=== PATIENT | female | born 1960 | race Caucasian/White ===

== ENCOUNTER 2018-05-16 15:46 | Observation (INO) ==
[2018-05-16] MEDS ORDERED: DILTIAZEM HCL 5 MG/ML VIAL IV ONE ×2 (15:57→16:02)
[2018-05-16] MEDS ORDERED: DILTIAZEM HCL 125 MG in DEXTROSE 5 % IN WATER 100 ML IV PRN ×2 (15:57)
[2018-05-16 16:14] LABS: Hematocrit 43.5 % (37.0-47.0); Hemoglobin 14.7 gm/dL (12.5-16.0); Mean Cell Volume 89.3 fl (78-100); Mean Corpuscular Hemoglobin 30.2 pg (27-31); Mean Corpuscular Hgb Conc 33.8 g/dl (32-36); Mean Platelet Volume 8.9 fl (8-12.5); Neutrophil # 5.1 K/mm3 (1.3-6.0); Neutrophil % 58.6 % (42-75.0); Platelet Count 290 K/mm3 (150-450); Red Blood Count 4.87 M/mm3 (4.2-5.4); Red Cell Distribution Width 12.2 % (11.5-14.0); White Blood Count 8.7 K/mm3 (4.0-10.5)
[2018-05-16] MEDS ORDERED: ASPIRIN 81 MG TAB.CHEW PO ONE (16:17)
[2018-05-16] MEDS ORDERED: ASPIRIN 81 MG TAB.CHEW ONE (16:18)
--- NOTE | 2018-05-16 16:23 | ERNOTE ---
Chest Pain/Cardiac HPI Chief Complaint: Palpitations Time Seen by Provider: 05/16/18 15:49 Source: patient Exam Limitations: no limitations Immunizations: IMMUNIZATION HX Immunizations Up to Date No History of Influenza Vaccine No Hx Pneumococcal Vaccination No Allergies/Adverse Reactions: Allergies No Known Allergies Allergy (Unverified 01/31/16 09:24) Home Medications: HOME MEDICATIONS Losartan Potassium [Cozaar] 100 mg PO DAILY 01/31/16 [Last Taken Unknown] Narrative: Patient presents with approximately 5-6 days of palpitations, some exertional dyspnea and generalized discomfort present across the back. Patient was seen in clinic today and was found to be in atrial fibrillation with a rapid ventricular response. Timing: constant Severity/Quality: moderate Location: back Chest Pain Radiation: no radiation Activities at Onset: none Modifying Factors - Improves: Present: nothing Modifying Factors - Worsens: Present: exercise Nitro Today/Relief: no nitro taken today Aspirin Treatment Today: 81 mg x 4 Associated Symptoms: Present: palpitations Prior Chest Pain/Cardiac Workup: Reports: prior chest pain Prior Treatment: Reports: recently seen, treated by physician Review of Systems - Review of Systems Constitutional: Present: See HPI EYE: Present: no symptoms reported ENT: Present: no symptoms reported Respiratory: Present: See HPI Cardiology: Present: See HPI Gastrointestinal/Abdominal: Present: no symptoms reported Genitourinary: Present: no symptoms reported Musculoskeletal: Present: no symptoms reported Skin: Present: no symptoms reported Neurological: Present: no symptoms reported Endocrine: Present: no symptoms reported Hematologic/Lymphatic: Present: no symptoms reported Psych: Present: no symptoms reported Medical History (Last Updated 05/16/18 @ 16:18 by Venkatesh Duff DO) High cholesterol Hypertension Social History: Preferred Language Mohawk Do you have any judaism or Yes: menonite cultural preference? Smoking Status Never smoker Alcohol Use occasionally Drug Use none Physical Exam - Physical Exam General Appearance: Present: wd/wn, alert, mild distress Head Exam: Present: normal inspection, no evidence of injury Eye Exam: Normal inspection: bilateral, PERRL: bilateral Ears, Nose, Throat: Present: normal ENT inspection, H, normal pharynx Neck: Present: normal inspection, nontender Respiratory: Present: no respiratory distress, normal breath sounds, no accessory muscle use, chest nontender, lungs clear Cardiovascular/Chest: Present: no murmur, normal peripheral pulses, tachycardia , irregularly irregular Gastrointestinal/Abdominal: Present: normal bowel sounds, nontender, nondistended, soft, no organomegaly Rectal Exam: Present: deferred Back Exam: Present: normal inspection, normal range of motion Extremity Exam: Present: normal inspection, non-tender, no edema, normal range of motion Neurological Exam: Present: alert, oriented, normal mood/affect Skin Exam: Present: normal color, warm/dry Lymphatic Exam: Present: no adenopathy ED Progress - Results and Orders Patient's Lab Results:: I have reviewed the patient's lab results. - Vital Signs Patient's Vital Signs:: I have reviewed the patient's vital signs. Vital Signs: Vital Signs 05/16/18 15:52 05/16/18 16:03 Temperature 37.1 C Pulse Rate 145 H 149 H Respiratory Rate 24 H Blood Pressure 147/121 H 142/121 H O2 Sat by Pulse Oximetry 97 - EKG EKG: atrial fibrillation EKG read: Reviewed by me - X-Ray X-Ray #1 X-Ray: chest Interpretation: Reviewed by me - Progress/Reassessment Chief Complaint: Palpitations Plan - Plan Plan: Patient will be admitted to the ICU on a Cardizem drip, Eliquis 5 mg by mouth twice a day and we will start her on Cardizem CD 120 mg to try to control the rate so we can stop the drip. Patient will also get an echocardiogram tomorrow. Departure Clinical Impression: Atrial fibrillation with rapid ventricular response - Departure Disposition: Still a patient Condition: Critical Referrals: Sarah Rinaldi MD [Primary Care Provider] - Critical Care Note - Critical Care Note Total Time (mins): 45 Comments: Patient required both IV Cardizem push as well as a Cardizem drip to control her atrial fibrillation. She'll be admitted to the ICU for hopeful conversion to an oral Cardizem and successful anticoagulation with Eliquis.
[2018-05-16 16:27] LABS: Prothrombin Time (Patient) 10.2 Seconds (9.0-11.0)
[2018-05-16 16:28] LABS: INR 1.02 INR (0.90-1.10); Partial Thrombolplastin Time 23.9 Seconds (24-32)
[2018-05-16 16:37] LABS: ALT 35 U/L (19-67); AST 22 U/L (0-48); Albumin * 3.8 gm/dl (3.4-5.0); Alkaline Phosphatase * 83 U/L (50-170); Anion Gap 11.3 mmol/L (6.8-13.8); BUN/Creatinine Ratio 19.5 (9.0-21.6); Bilirubin, Total 0.5 mg/dL (0.0-1.1); Blood Urea Nitrogen 17 mg/dL (3-23); Calcium * 9.2 mg/dL (7.9-10.9); Carbon Dioxide 27.5 mmol/L (24-32.6); Chloride 106 mmol/L (97-106); Glucose * 98 mg/dL (70-110); Magnesium 1.9 mg/dL (1.2-2.8); Potassium 3.8 mmol/L (3.4-4.6); Sodium 141 mmol/L (132-142); Total Protein 7.5 gm/dL (6.2-8.2); Troponin I Less than 0.017 ng/mL (0.00-0.10)
[2018-05-16] MEDS ORDERED: NORMAL SALINE 1,000 ML IV ONE (17:09)
[2018-05-16] MEDS ORDERED: DILTIAZEM HCL 120 MG CAP.SR.24H PO ONE (17:30)
[2018-05-16] MEDS ORDERED: APIXABAN 5 MG TABLET PO ONE (17:30)
--- NOTE | 2018-05-16 18:28 | HP ---
Chief Complaint - Chief Complaint Date of Service: 05/16/18 Time of Service: 18:17 Chief Complaint: chest discomfort, palpitations History of Present Illness: Patient started having some chest and upper back discomfort 5-6 days ago. Was found to be in afib with RVR in the ED. Has never had this before. No SOB or dizziness. No recent medication changes. Denies alcohol or drug use. Medical History (Last Updated 05/16/18 @ 16:18 by Venkatesh Duff DO) High cholesterol Hypertension Social History: Preferred Language Bulgarian Do you have any episcopal or Yes: menonite cultural preference? Smoking Status Never smoker Alcohol Use occasionally Drug Use none Review Of Systems (GEN) - Review of Systems Generalized/Overall Review: Absent: Fever, Diaphoresis Respiratory: Absent: Cough, Shortness of Breath, Wheezing Cardiac: Present: Palpitations, Other. Absent: Chest Pain, Edema Abdominal: Absent: Nausea, Vomiting, Constipation, Diarrhea Neurological: Absent: Seizure Skin: Present: No Symptoms Reported Immunizations: IMMUNIZATION HX Immunizations Up to Date No History of Influenza Vaccine No Hx Pneumococcal Vaccination No Allergies/Adverse Reactions: Allergies Allergy/AdvReac Type Severity Reaction Status Date / Time No Known Allergies Allergy Unverified 01/31/16 09:24 Home Medications: HOME MEDICATIONS Losartan Potassium [Cozaar] 100 mg PO DAILY 01/31/16 [Last Taken Unknown] Exam - Exam Vital Signs: Vital Signs - Last Taken Temp 37.1 C 05/16/18 15:52 Pulse 101 H 05/16/18 17:14 Resp 24 H 05/16/18 15:52 BP 151/83 H 05/16/18 17:14 Pulse Ox 97 05/16/18 15:52 Constitutional: Present: Alert, Oriented x3, Cooperative, Well developed, No distress ENT Exam: Present: hearing grossly normal Eye Exam: bilateral eye: EOMI Respiratory: Present: lungs clear, normal breath sounds, no respiratory distress Cardiovascular/Chest: Present: regular rate, rhythm Abdomen: Present: Normal bowel sounds, soft, nontender Extremity: Absent: lower extremity edema Skin Exam: Present: normal color Lymphatic: Present: no adenopathy Neurologic: Present: normal mood/affect Appearance: Present: appropriate appearance, appropriate insight Eye contact: Present: cooperative, good eye contact Diagnostic Studies: Abnormal Lab Results 05/16/18 05/16/18 Range/Units 16:11 16:11 Immature Gran % (Auto) 0.50 H (0.001-0.429) % Immature Gran # (Auto) 0.04 H (0.000-0.0310) K/mm3 PTT ([place]) 23.9 L (24-32) Seconds Laboratory Results WBC 8.7 K/mm3 (4.0-10.5) 05/16/18 16:11 RBC 4.87 M/mm3 (4.2-5.4) 05/16/18 16:11 Hgb 14.7 gm/dL (12.5-16.0) 05/16/18 16:11 Hct 43.5 % (37.0-47.0) 05/16/18 16:11 MCV 89.3 fl (78-100) 05/16/18 16:11 MCH 30.2 pg (27-31) 05/16/18 16:11 MCHC 33.8 g/dl (32-36) 05/16/18 16:11 RDW 12.2 % (11.5-14.0) 05/16/18 16:11 Plt Count 290 K/mm3 (150-450) 05/16/18 16:11 MPV 8.9 fl (8-12.5) 05/16/18 16:11 Immature Gran % (Auto) 0.50 % (0.001-0.429) H 05/16/18 16:11 Immature Gran # (Auto) 0.04 K/mm3 (0.000-0.0310) H 05/16/18 16:11 Neutrophils % 58.6 % (42-75.0) 05/16/18 16:11 Lymphocytes % 33.1 % (20-51) 05/16/18 16:11 Monocytes % 5.7 % (0.0-9) 05/16/18 16:11 Eosinophils % 1.2 % (0.0-3.0) 05/16/18 16:11 Basophils % 0.9 % (0.0-1.0) 05/16/18 16:11 Nucleated RBC % 0.0 k/mm3 (0-1) 05/16/18 16:11 Neutrophils # 5.1 K/mm3 (1.3-6.0) 05/16/18 16:11 Lymphocytes # 2.87 k/mm3 (1.5-3.5) 05/16/18 16:11 Monocytes # 0.5 k/mm3 (0.0-1.0) 05/16/18 16:11 Eosinophils # 0.1 k/mm3 (0.0-0.7) 05/16/18 16:11 Absolute Basophils 0.1 k/mm3 (0.0-0.1) 05/16/18 16:11 PT 10.2 Seconds (9.0-11.0) 05/16/18 16:11 INR (Anticoag Therapy) 1.02 INR (0.90-1.10) 05/16/18 16:11 PTT ([place]) 23.9 Seconds (24-32) L 05/16/18 16:11 Sodium 141 mmol/L (132-142) 05/16/18 16:11 Plasma Sodium 141 mmol/L (130-142) 05/16/18 16:11 Potassium 3.8 mmol/L (3.4-4.6) 05/16/18 16:11 Chloride 106 mmol/L (97-106) 05/16/18 16:11 Carbon Dioxide 27.5 mmol/L (24-32.6) 05/16/18 16:11 Anion Gap 11.3 mmol/L (6.8-13.8) 05/16/18 16:11 BUN 17 mg/dL (3-23) 05/16/18 16:11 Creatinine 0.87 mg/dL (0.4-1.4) 05/16/18 16:11 Est GFR (Non-Af Amer) 72 mL/min (60-130) 05/16/18 16:11 BUN/Creatinine Ratio 19.5 (9.0-21.6) 05/16/18 16:11 Random Glucose 98 mg/dL (70-110) 05/16/18 16:11 Calcium 9.2 mg/dL (7.9-10.9) 05/16/18 16:11 Calcium Adj for Albumin 9.0 mg/dL (8.4-10.2) 05/16/18 16:11 Magnesium 1.9 mg/dL (1.2-2.8) 05/16/18 16:11 Total Bilirubin 0.5 mg/dL (0.0-1.1) 09/06/18 16:11 AST 22 U/L (0-48) 05/16/18 16:11 ALT 35 U/L (19-67) 05/16/18 16:11 Alkaline Phosphatase 83 U/L (50-170) 05/16/18 16:11 Troponin I Less than 0.017 ng/mL (0.00-0.10) 05/16/18 16:11 Total Protein 7.5 gm/dL (6.2-8.2) 05/16/18 16:11 Albumin 3.8 gm/dl (3.4-5.0) 05/16/18 16:11 Assessment/Plan - Narrative Narrative: Patient has already converted to sinus rhythm. Cardizem drip has been stopped. She was administered 120 mg cardizem in the ED, and will order for this to continue. Will obtain echocardiogram in the am, and order a stress test for her to do outpatient. If TSH has not been done, will order. She was started on 5 mg eliquis in the ED, and will continue. Indefinite source at this time, but obstructive sleep apnea is in the differential. Likely discharge in the morning with follow up with PCP. - Assessment/Plan (1) Atrial fibrillation with rapid ventricular response Problem: Acute
[2018-05-17] MEDS ORDERED: APIXABAN 5 MG TABLET PO SCH (09:00)
[2018-05-17] MEDS ORDERED: LOSARTAN POTASSIUM 50 MG TABLET PO SCH (09:00)
--- NOTE | 2018-05-17 10:58 | DS ---
(1) Atrial fibrillation with rapid ventricular response Problem: Acute Description of Stay: Patient presented to the ED with chest discomfort for a few days, and was found to be in afib with RVR with rates around 150. She was given 25 mg IV diltiazem and started on a cardizem drip, and her rate decreased to the 90's. She was given 120 mg po cardizem CD and started on 5 mg eliquis bid. Upon arriving to the SCU, she converted to sinus rhythm. She remained in sinus rhythm throughout the remainder of her stay. Echocardiogram was done, which has not yet resulted at this time. Procedures Performed: none Results and Findings: Lab Pending Results 05/16/18 16:07: TSH 2.775 05/16/18 16:11: WBC 8.7, RBC 4.87, Hgb 14.7, Hct 43.5, MCV 89.3, MCH 30.2, MCHC 33.8, RDW 12.2, Plt Count 290, MPV 8.9, Immature Gran % (Auto) 0.50 H, Immature Gran # (Auto) 0.04 H, Neutrophils % 58.6, Lymphocytes % 33.1, Monocytes % 5.7, Eosinophils % 1.2, Basophils % 0.9, Nucleated RBC % 0.0, Neutrophils # 5.1, Lymphocytes # 2.87, Monocytes # 0.5, Eosinophils # 0.1, Absolute Basophils 0.1 05/16/18 16:11: PT 10.2, INR (Anticoag Therapy) 1.02, PTT ([place]) 23.9 L 05/16/18 16:11: Sodium 141, Plasma Sodium 141, Potassium 3.8, Chloride 106, Carbon Dioxide 27.5, Anion Gap 11.3, BUN 17, Creatinine 0.87, Est GFR (Non-Af Amer) 72, BUN/Creatinine Ratio 19.5, Random Glucose 98, Calcium 9.2, Calcium Adj for Albumin 9.0, Magnesium 1.9, Total Bilirubin 0.5, AST 22, ALT 35, Alkaline Phosphatase 83, Troponin I Less than 0.017, Total Protein 7.5, Albumin 3.8 Discharge Location: Home Disposition: Home self-care Condition: Good Discharge Activity: Activity as tolerated Discharge Diet: General/regular food Referrals: Sarah Rinaldi MD [Primary Care Provider] - Additional Patient Instructions (free text): Appointment with Dr Samuels on Sunday(05/20/18) at 3pm at [facility] [place]. Community wide scheduling will call you with date/appointment times for outpatient sleep study and stress test. Prescriptions (Any new or edited meds): Apixaban [Eliquis] 5 mg PO BID #60 tab Diltiazem HCl [Cardizem Cd] 120 mg PO Q24H #30 cap.sr.24h Complete Home Medications List: Complete Home Medication List: Losartan Potassium [Cozaar] 100 mg PO DAILY 01/31/16 Apixaban [Eliquis] 5 mg PO BID #60 tab 05/17/18 Diltiazem HCl [Cardizem Cd] 120 mg PO Q24H #30 cap.sr.24h 05/17/18 Amb Orders for Discharge: NUC Treadmill Stress Test Time Frame: 2 Weeks, Location: Radiology Sleep Study Time Frame: 2 Weeks, Location: Sleep Lab
[2018-05-17 11:27] VITALS: BP 134/76
[2018-05-17] MEDS ORDERED: DILTIAZEM HCL 120 MG CAP.SR.24H PO SCH (17:30)
--- NOTE | 2018-05-20 13:46 | ECHO ---
This report is available in the EMR
== END 2018-05-17 11:25 | disposition home or self-care (01) ==
LOC: ER 15:46 → SCU 17:04 → INTOOBSV 17:04 → OBSVTOIN 17:04 → SCU 18:01
PROVIDERS: ADMIT Family Medicine; ATTEND Family Medicine
DX: I48.91 Unspecified atrial fibrillation; I10 Essential (primary) hypertension; E78.00 Pure hypercholesterolemia, unspecified
CPT/HCPCS: 36415; 71010; 71045; 80053; 83735; 84443; 84484; 85025; 85610; 85730; 93005; 93306; 96361; 96365; 96375; 99291; G0378